=== PATIENT | female | born 1995 | race Caucasian/White ===

== ENCOUNTER → 2016-08-01 | Outpatient (CLI) | payer BC, OTHER ==
--- NOTE | 2016-08-02 22:24 | REP ---
Five view right knee series 08/01/2016 Indication: Contusion Comparison: None Findings: The right knee is without acute fracture, subluxation, or dislocation. Slight contour depression within the periphery of the anterior and medial aspect of the medial femoral condyle is noted. This could represent old osteochondral injury or anatomic variant. Alignment is anatomic . There is no suprapatellar effusion Impression: No acute fracture or dislocation within the right knee Slight contour depression/undulation within the medial femoral condyle is noted which may be secondary to old osteochondral injury or possibly anatomic variant. Signed by Alicia Escamilla MD 08/02/2016 10:16 P
== END ==
LOC: M WUC 16:26
PROVIDERS: ATTEND Physician Assistant
DX: S80.01XA Contusion of right knee, initial encounter (principal); X58.XXXA Exposure to other specified factors, initial encounter; Y93.9 Activity, unspecified; Y92.9 Unspecified place or not applicable; Y99.8 Other external cause status

== ENCOUNTER → 2018-04-17 | Outpatient (CLI) | payer BC, OTHER | LOC: M WUC 13:39 | DX: S90.32XA Contusion of left foot, initial encounter (principal); X58.XXXA Exposure to other specified factors, initial encounter; Y92.9 Unspecified place or not applicable | CPT/HCPCS: 73630 ==

== ENCOUNTER → 2018-12-16 | Outpatient (CLI) | payer BC, OTHER ==
--- NOTE | 2018-12-16 14:43 | REP ---
LEFT ANKLE, FOUR VIEWS: HISTORY: Pain. There is no acute fracture or dislocation. The joint space is normal in appearance. IMPRESSION: There is no acute fracture or dislocation. Electronically Signed by Shravan Nagel MD 12/16/2018 03:00 P
== END ==
LOC: M WUC 14:19
PROVIDERS: ATTEND Physician Assistant
DX: M25.572 Pain in left ankle and joints of left foot (principal)

== ENCOUNTER → 2019-06-27 | Outpatient (CLI) | payer BC, OTHER ==
--- NOTE | 2019-06-27 11:48 | REP ---
Gastric emptying nuclear scintigraphy: History: Vomiting. Technique: 1.1 mCi of technetium-99m sulfur colloid was ingested in two scrambled eggs and 6 ounces of water and sequential anterior and posterior images are acquired for an 89-minute imaging observation period. Regions of interest are drawn around the stomach to plot gastric emptying. Scintigraphic findings: Expected T1/2 is 90 minutes. 51 % emptying is observed in this patient during the 89-minute imaging observation period, for a calculated T1/2 in this patient of 61 minutes. Impression: Normal gastric emptying. Electronically Signed by Bala Kumar MD 06/27/2019 11:41 A
== END ==
LOC: M RAD 08:59
PROVIDERS: ATTEND Internal Medicine Gastroenterology
DX: R11.10 Vomiting, unspecified (principal)
CPT/HCPCS: 78264; A9541

== ENCOUNTER → 2019-08-03 | Outpatient (CLI) | payer BC, OTHER ==
[~2019-08-03] MED LIST: LEXA1TAB PO; VIEN1TAB PO
[2019-08-03 18:49] LABS: FREE T4 0.76 NG/DL (0.76-1.46); THYROID STIMULATING HORMONE 1.23 uIU/ML (0.358-3.740)
== END ==
LOC: M LAB 17:31
PROVIDERS: ATTEND Internal Medicine Gastroenterology
DX: R11.10 Vomiting, unspecified (principal)

== ENCOUNTER 2019-08-05 11:13 | Day surgery (SDC) | payer BC, OTHER ==
[~2019-08-05] VITALS: Ht 167.6 cm; Wt 47.4 kg
[~2019-08-05 11:13] MED LIST changes: +LIDOCAINE 2% INJ 100 MG/5 ML SDV (FOR ANES.) As Ordered ONE; +NS 1,000 ML IV ONE; +propofoL 200 MG/20 ML VIAL As Ordered ONE
--- NOTE | 2019-08-05 13:05 | ROOR ---
Patient Name: Rita Rodriguez Procedure Date: 08/05/2019 12:18 PM Date of : 1995 Age: 23 Room: [facility] Gender: Female Note Status: Finalized Procedure: Upper GI endoscopy Indications: Generalized abdominal pain, Nausea with vomiting, Persistent vomiting, Weight loss Providers: Jeremy ESTEVEZ MD Referring MD: Gela Burciaga NP Requesting Provider: Medicines: Monitored Anesthesia Care Complications: No immediate complications. Procedure: Pre-Anesthesia Assessment: - The heart rate, respiratory rate, oxygen saturations, blood pressure, adequacy of pulmonary ventilation, and response to care were monitored throughout the procedure. The Endoscope was introduced through the mouth, and advanced to the second part of duodenum. The upper GI endoscopy was accomplished without difficulty. The patient tolerated the procedure well. Findings: The esophagus was normal. The stomach was normal. The examined duodenum was normal. Several biopsies were obtained in the entire esophagus, in the stomach and in the entire duodenum with cold forceps for evaluation of chronic inflammation/eosinophilic gastroenteritis, celiac disease. Impression: - Normal esophagus. - Normal stomach. - Normal examined duodenum. - Several biopsies were obtained in the entire esophagus, in the stomach and in the entire examined duodenum. R/O celiac, eosinophilic gastroenteritis. Recommendation: - Observe patient's clinical course. - Continue present medications. Jeremy Estevez MD Jeremy ESTEVEZ MD 08/05/2019 1:04:53 PM Electronically signed by Jeremy ETSEVEZ MD Number of Addenda: 0 Note Initiated On: 08/05/2019 12:18 PM Estimated Blood Loss: Estimated blood loss: none.
--- NOTE | 2019-08-05 13:10 | ROOR ---
Patient Name: Rita Rodriguez Procedure Date: 08/05/2019 12:20 PM Date of : 1995 Age: 23 Room: [facility] Gender: Female Note Status: Finalized Procedure: Colonoscopy Indications: Generalized abdominal pain, Clinically significant diarrhea of unexplained origin, Constipation, Weight loss Providers: Jeremy ESTEVEZ MD Referring MD: Gela Burciaga NP Requesting Provider: Medicines: Monitored Anesthesia Care Complications: No immediate complications. Procedure: Pre-Anesthesia Assessment: - The heart rate, respiratory rate, oxygen saturations, blood pressure, adequacy of pulmonary ventilation, and response to care were monitored throughout the procedure. The Colonoscope was introduced through the anus and advanced to the cecum, identified by appendiceal orifice and ileocecal valve. The colonoscopy was performed with difficulty due to inadequate bowel prep. The patient tolerated the procedure well. The quality of the bowel preparation was inadequate. Findings: The perianal and digital rectal examinations were normal. A scattered area of mildly erythematous mucosa was found in the sigmoid colon. This was biopsied with a cold forceps for histology. The exam was otherwise normal throughout the examined colon. Impression: - Preparation of the colon was inadequate. - Scattered Erythematous mucosa in the sigmoid colon. Biopsied. - The colon is otherwise normal. (suboptimal visualisation due to poor prep) Recommendation: - Use Lactulose at 2 tbsp PO BID. - (the script was sent to your pharmacy on file) - Return to my office in 1 month. - To discuss todays findings, my office will call you in the next few days to schedule a follow up appointment. Jeremy Estevez MD Jeremy ESTEVEZ MD 08/05/2019 1:10:19 PM Electronically signed by Jeremy ESTEVEZ MD Number of Addenda: 0 Note Initiated On: 08/05/2019 12:20 PM Estimated Blood Loss: Estimated blood loss: none.
[2019-08-05 14:10] VITALS: BP 105/71
== END 2019-08-05 14:18 | disposition home or self-care (01) ==
LOC: M OPP 11:13
PROVIDERS: ATTEND Internal Medicine Gastroenterology
DX: K63.89 Other specified diseases of intestine (principal); K29.70 Gastritis, unspecified, without bleeding; R10.84 Generalized abdominal pain; R19.7 Diarrhea, unspecified; R63.4 Abnormal weight loss

== ENCOUNTER → 2019-10-06 | Outpatient (CLI) | payer BC, OTHER ==
[~2019-10-06] MED LIST changes: -LIDOCAINE 2% INJ 100 MG/5 ML SDV (FOR ANES.) As Ordered ONE; -NS 1,000 ML IV ONE; -propofoL 200 MG/20 ML VIAL As Ordered ONE
--- NOTE | 2019-10-06 09:45 | REP ---
Right upper quadrant sonography: History: Nausea and vomiting. Comparison study: Comparison CT study March 28, 2019. Findings: Scanning through the right upper quadrant of the abdomen demonstrates a normal sized, thin-walled gallbladder without evidence of stone or polyp. Common bile duct is normal measuring 0.2 cm in greatest diameter. No focal liver lesion is seen. Liver size is normal. No pancreatic abnormality is observed. No right renal abnormality is seen. There is no evidence of ascites. The right kidney measures 9.9 x 5.4 x 4.7 cm. Impression: Negative right upper quadrant sonography. Electronically Signed by Bala Kumar MD 10/06/2019 09:37 A
== END ==
LOC: M RAD 07:16
PROVIDERS: ATTEND Internal Medicine Gastroenterology
DX: R11.2 Nausea with vomiting, unspecified (principal)

== ENCOUNTER → 2019-10-18 | Outpatient (CLI) | payer BC, OTHER ==
--- NOTE | 2019-10-18 10:39 | REP ---
HIDA SCAN WITH GALLBLADDER EJECTION FRACTION: Following the intravenous administration of 6.6 millicuries technetium 99m mebrofenin, multiple images of the right upper quadrant are performed every 5 minutes for a period of 1 hour. Gallbladder is visualized at 10 minutes post injection. There is biliary to bowel transit at about 25 minutes post injection. There is no scintigraphic evidence of cholecystitis. At the 1-hour deepa, 8 ounces of Ensure Enlive was ingested. Further imaging is performed for 1 hour. Gallbladder activity is measured. The gallbladder ejection fraction is 86%, which is normal. IMPRESSION: Normal gallbladder ejection fraction. Electronically Signed by Douglas Lutz MD 10/18/2019 10:42 A
== END ==
LOC: M RAD 07:54
PROVIDERS: ATTEND Internal Medicine Gastroenterology
DX: K82.8 Other specified diseases of gallbladder (principal)
CPT/HCPCS: 78227; A9537

== ENCOUNTER → 2020-01-03 | Outpatient (CLI) | payer BC, OTHER | LOC: M LABSMTC 10:25 | PROVIDERS: ATTEND Internal Medicine Gastroenterology | DX: Z03.818 Encounter for observation for suspected exposure to other biological agents ruled out (principal); Z11.59 Encounter for screening for other viral diseases | CPT/HCPCS: C9803; U0003 ==

== ENCOUNTER → 2023-11-10 | Outpatient (CLI) | payer OTHER ==
[2023-11-10 18:40] LABS: BASO % 0.7 % (0.0-1.0); EOS % 0.7 % (0.0-3.0); HEMATOCRIT 33.3 % (36.0-47.0); HEMOGLOBIN 11.2 g/dl (12.0-15.5); LYMPH # 2.1 10^3/uL (1.5-5.0); LYMPH % 33.4 % (24.0-44.0); MEAN CORPUSCULAR HGB CONC 33.6 g/dl (32.0-36.5); MEAN CORPUSCULAR VOLUME 89.3 fl (80.0-96.0); MONO # 0.4 10^3/uL (0.0-0.8); MONO % 5.9 % (2.0-8.0); NEUTROPHILS # 3.6 10^3/uL (1.5-8.5); PLATELET COUNT, AUTOMATED 290 10^3/uL (150-450); RED BLOOD COUNT 3.73 10^6/uL (4.00-5.40); WHITE BLOOD COUNT 6.1 10^3/uL (4.0-10.0)
[2023-11-10 18:50] LABS: C REACTIVE PROTEIN QUANTITATIV < 0.40 MG/DL (<1.0); IRON (FE) 68 UG/DL (50-170)
[2023-11-10 18:51] LABS: ALBUMIN 3.7 G/DL (3.2-5.2); ALKALINE PHOSPHATASE 44 U/L (46-116); ALT/SGPT 16 U/L (7.0-40); AST/SGOT 21 U/L (<34); BILIRUBIN,TOTAL 0.4 MG/DL (0.3-1.2); BLOOD UREA NITROGEN 9 MG/DL (9-23); CALCIUM LEVEL 9.8 MG/DL (8.5-10.1); CARBON DIOXIDE LEVEL 31 MMOL/L (20-31); CHLORIDE LEVEL 101 MMOL/L (98-107); CREATININE FOR GFR 0.69 MG/DL (0.55-1.30); GLOMERULAR FILTRATION RATE > 60.0 (>60); GLUCOSE, FASTING 83 MG/DL (60-100); PERCENT SATURATION 18.9 % (13.2-45.0); POTASSIUM SERUM 3.9 MMOL/L (3.5-5.1); SODIUM LEVEL 137 MMOL/L (136-145); TOTAL IRON BINDING CAPACITY 359 UG/DL (250-425); TOTAL PROTEIN 7.2 G/DL (5.7-8.2)
[2023-11-10 18:54] LABS: THYROID STIMULATING HORMONE 1.344 uIU/ML (0.55-4.78)
[2023-11-10 18:55] LABS: FREE T4 0.87 NG/DL (0.89-1.76); VITAMIN B12 LEVEL 567 PG/ML (211-911)
[2023-11-10 18:56] LABS: FOLATE > 24.0 NG/ML (>5.4)
[2023-11-10 19:05] LABS: HEMOGLOBIN A1c 5.1 % (4.0-6.0)
== END ==
LOC: M LAB 18:05
PROVIDERS: ATTEND Physician Assistant
DX: R53.83 Other fatigue (principal); R20.2 Paresthesia of skin